=== PATIENT | male | born 1940 | race Caucasian/White ===

== ENCOUNTER 2017-11-19 01:29 | Outpatient (CLI) | payer MEDICARE, OTHER ==
[~2017-11-19 01:29] MED LIST: ALBU8HFA PO; ALLO100T PO; AMLO10TA PO; OMEP20TA23 PO; POTA10TA21 PO
== END 2017-11-19 23:59 | disposition home or self-care (01) ==
LOC: DIABETIC 01:29
PROVIDERS: ATTEND Family Medicine
DX: E11.65 Type 2 diabetes mellitus with hyperglycemia (principal); E11.21 Type 2 diabetes mellitus with diabetic nephropathy; E78.5 Hyperlipidemia, unspecified; I10 Essential (primary) hypertension; Z79.899 Other long term (current) drug therapy
CPT/HCPCS: G0108

== ENCOUNTER 2018-02-20 01:43 | Outpatient (CLI) | payer MEDICARE, OTHER | END 2018-02-20 23:59 | disposition home or self-care (01) | LOC: DIABETIC 01:43 | PROVIDERS: ATTEND Family Medicine | DX: E11.65 Type 2 diabetes mellitus with hyperglycemia (principal); E11.21 Type 2 diabetes mellitus with diabetic nephropathy; I10 Essential (primary) hypertension; E78.5 Hyperlipidemia, unspecified; Z79.82 Long term (current) use of aspirin; Z88.1 Allergy status to other antibiotic agents; Z88.0 Allergy status to penicillin; Z88.6 Allergy status to analgesic agent; Z88.8 Allergy status to other drugs, medicaments and biological substances; Z79.899 Other long term (current) drug therapy | CPT/HCPCS: G0108 ==

== ENCOUNTER 2018-05-19 04:37 | Outpatient (CLI) | payer MEDICARE, OTHER | END 2018-05-19 23:59 | disposition home or self-care (01) | LOC: DIABETIC 04:37 | PROVIDERS: ATTEND Family Medicine | DX: E11.65 Type 2 diabetes mellitus with hyperglycemia (principal); E11.21 Type 2 diabetes mellitus with diabetic nephropathy; I10 Essential (primary) hypertension; E78.5 Hyperlipidemia, unspecified; Z87.891 Personal history of nicotine dependence; Z79.899 Other long term (current) drug therapy | CPT/HCPCS: G0108 ==

== ENCOUNTER 2019-07-29 07:44 | Day surgery (SDC) | payer MEDICARE, OTHER ==
[2019-07-28 10:33] LABS: BASOPHILS # (AUTO) 0.1 X10'3 (0-0.2); EOSINOPHILS # (AUTO) 0.1 X10'3 (0-0.9); EOSINOPHILS % (AUTO) 1.7 % (0-6); HEMATOCRIT 44.5 % (42.0-52.0); HEMOGLOBIN 14.8 g/dl (14.0-17.9); LYMPHOCYTES # (AUTO) 2.7 X10'3 (1.1-4.8); LYMPHOCYTES % (AUTO) 30.7 % (21-51); MEAN CORPUSCULAR HEMOGLOBIN 30.7 PG (27.0-31.0); MEAN CORPUSCULAR HGB CONC 33.4 g/dL (33.0-36.5); MEAN PLATELET VOLUME 7.9 FL (7.4-10.4); MONOCYTES # (AUTO) 0.7 X10'3 (0-0.9); MONOCYTES % (AUTO) 8.5 % (2-12); NEUTROPHILS % (AUTO) 58.1 % (42-75); PLATELET COUNT 254 X10'3 (140-440); RED BLOOD COUNT 4.84 X10'6 (4.70-6.10); RED CELL DISTRIBUTION WIDTH 14.9 % (11.5-14.5); WHITE BLOOD COUNT 8.7 X10'3 (4.5-11.0)
[2019-07-28 10:43] LABS: ALBUMIN 3.7 G/DL (3.4-5.0); ANION GAP 5 (8-16); BLOOD UREA NITROGEN 24 MG/DL (7-18); BUN/CREATININE RATIO 18.5 (5.4-32.0); CALCIUM 9.4 MG/DL (8.5-10.1); CHLORIDE 106 MMOL/L (99-107); POTASSIUM 4.9 MMOL/L (3.5-5.1); SODIUM 141 MMOL/L (135-145); TOTAL CARBON DIOXIDE 30.1 MMOL/L (24-32); eGFR 53 ML/MIN
[2019-07-28 10:44] LABS: PARTIAL THROMBOPLASTIN TIME 26 SECONDS (22-32)
[2019-07-28 10:45] LABS: GLUCOSE 110 MG/DL (70-104)
[~2019-07-29] VITALS: Ht 172.7 cm; Wt 109.4 kg
[2019-07-29] VITALS (12 sets, daily range): BP systolic 105–195; BP diastolic 49–90
[2019-07-29] MEDS ORDERED: normal saline 1,000 ML IV SCH (08:05)
[2019-07-29] MEDS ORDERED: LORazepam 0.5 MG tablet PO PRN (08:05)
[2019-07-29] MEDS ORDERED: diphenhydrAMINE 25mg capsule PO PRN (08:05)
[2019-07-29] MEDS ORDERED: ALLO300T8 PO (08:19)
[2019-07-29] MEDS ORDERED: FURO20TA4 PO (08:19)
[2019-07-29] MEDS ORDERED: BISO5TAB29 PO (08:19)
[2019-07-29] MEDS ORDERED: ASPI-1265 PO (08:19)
[2019-07-29] MEDS ORDERED: PANT20TA3 PO (08:19)
[2019-07-29] MEDS ORDERED: GLUC500T12 (08:19)
[2019-07-29] MEDS ORDERED: ATOR-2 PO (08:19)
[2019-07-29] MEDS ORDERED: CLOP75TA35 PO (08:19)
[2019-07-29] MEDS ORDERED: CYAN250T (08:19)
[2019-07-29] MEDS ORDERED: LOSA25TA41 PO (08:19)
[2019-07-29] MEDS ORDERED: EPIN0.3P3 IM (08:22)
[2019-07-29] MEDS ORDERED: LIDOcaine/PRILOcaine 5gm cream TP ONE (08:25)
[2019-07-29] MEDS ORDERED: sodium bicarbonate (8.4%) inj. 150 ML in dextrose 5%-water 1,000 ML IV ONE (08:40)
[2019-07-29] MEDS ORDERED: sodium bicarbonate (8.4%) inj. 75 ML in dextrose 5%-water 500 ML IV ONE (08:45)
[2019-07-29] MEDS ORDERED: acetylcysteine 200 MG/ml 4ml vial PO SCH (09:50)
[2019-07-29] MEDS ORDERED: acetylcysteine 200 MG/ml 4ml vial PO PRN (09:50)
[2019-07-29] MEDS ORDERED: nitroGLYCERIN-Tridil 50MG/D5W 250 ML IV ONE (10:08)
[2019-07-29] MEDS ORDERED: verapamil 2.5 mg/ml inj IV ONE (10:08)
[2019-07-29] MEDS ORDERED: fentaNYL/PF 50MCG/1 ML 2ML syringe ONE (10:09)
[2019-07-29] MEDS ORDERED: heparin 1,000unit/ml 10ml vial 10 ML ONE (10:09)
[2019-07-29] MEDS ORDERED: midazolam 2 mg/2 ml injection ONE (10:09)
[2019-07-29] MEDS ORDERED: iohexol 350 MG/ML 50ML vial IV ONE (10:09)
[2019-07-29] MEDS ORDERED: LIDOcaine 1% (10mg/ml)w/preservative injection 20ml MDV ONE (10:09)
[2019-07-29] MEDS ORDERED: iohexol 350MG/ML 100ml bottle IV ONE ×2 (10:09→11:05)
[2019-07-29] MEDS ORDERED: sodium bicarbonate (8.4%) inj. 75 MEQ in dextrose 5% water 500ml 500 ML IV SCH (12:07)
[2019-07-29 12:40] LABS: ISTAT Hct MIX 38 %PCV (42-52); ISTAT O2 SATURATION MIX VENOUS 63 % (60-80); ISTAT SOURCE MIX
[2019-07-29 12:40] LABS: ISTAT HGB ART 13.3 g/dl (14.0-18.0); ISTAT Hct ART 39 %PCV (42-52); ISTAT O2 SATURATION ARTERIAL 95 % (95-98); ISTAT SOURCE ART
== END 2019-07-29 18:40 | disposition home or self-care (01) ==
LOC: SSTAY O 07:44
PROVIDERS: ATTEND Internal Medicine Cardiovascular Disease
DX: R06.02 Shortness of breath (principal); I25.10 Atherosclerotic heart disease of native coronary artery without angina pectoris; E78.5 Hyperlipidemia, unspecified; E11.22 Type 2 diabetes mellitus with diabetic chronic kidney disease; I13.0 Hypertensive heart and chronic kidney disease with heart failure and stage 1 through stage 4 chronic kidney disease, or unspecified chronic kidney disease; I50.32 Chronic diastolic (congestive) heart failure; N18.9 Chronic kidney disease, unspecified; I35.0 Nonrheumatic aortic (valve) stenosis; G47.33 Obstructive sleep apnea (adult) (pediatric); J45.909 Unspecified asthma, uncomplicated; M10.9 Gout, unspecified; Z95.5 Presence of coronary angioplasty implant and graft; Z95.2 Presence of prosthetic heart valve; Z79.899 Other long term (current) drug therapy; Z79.82 Long term (current) use of aspirin; Z79.01 Long term (current) use of anticoagulants; Z90.49 Acquired absence of other specified parts of digestive tract; Z98.890 Other specified postprocedural states; Z82.49 Family history of ischemic heart disease and other diseases of the circulatory system; Z82.5 Family history of asthma and other chronic lower respiratory diseases; Z87.891 Personal history of nicotine dependence; Z88.0 Allergy status to penicillin
CPT/HCPCS: 36415; 80048; 82803; 85014; 85025; 85610; 85730; 93005; 93460; 93567; 99152; 99153; C1769; C1894; J1644; J2001; J2250; J3010; J7030; Q0163; Q9967; A4620; A5120; J3490

== ENCOUNTER 2021-11-14 10:31 | Emergency (ER) | payer MEDICARE, OTHER ==
[~2021-11-14] VITALS: Ht 172.7 cm; Wt 104.5 kg
[~2021-11-14 10:31] MED LIST changes: -ALLO100T PO; +ALLO300T8 PO; -AMLO10TA PO; +ASPI-1265 PO; +ATOR-2 PO; +BISO5TAB29 PO; +CLOP75TA34 PO; +CYAN250T3; +EPIN0.3P3 IM; +FURO20TA4 PO; +GLUC500T12; +LOSA25TA41 PO; -OMEP20TA23 PO; +PANT20TA18 PO
[2021-11-14 11:58] LABS: BASOPHILS # (AUTO) 0.1 X10'3 (0-0.2); BASOPHILS % (AUTO) 0.8 % (0-1); EOSINOPHILS # (AUTO) 0.3 X10'3 (0-0.9); EOSINOPHILS % (AUTO) 3.3 % (0-6); HEMATOCRIT 41.8 % (42.0-52.0); HEMOGLOBIN 14.2 g/dl (14.0-17.9); LYMPHOCYTES # (AUTO) 2.4 X10'3 (1.1-4.8); LYMPHOCYTES % (AUTO) 27.4 % (21-51); MEAN CORPUSCULAR HEMOGLOBIN 31.1 PG (27.0-31.0); MEAN CORPUSCULAR HGB CONC 33.9 g/dL (33.0-36.5); MEAN CORPUSCULAR VOLUME 91.6 FL (78-98); MEAN PLATELET VOLUME 7.3 FL (7.4-10.4); MONOCYTES # (AUTO) 0.9 X10'3 (0-0.9); MONOCYTES % (AUTO) 9.6 % (2-12); NEUTROPHILS # (AUTO) 5.2 X10'3 (1.8-7.7); NEUTROPHILS % (AUTO) 58.9 % (42-75); PLATELET COUNT 243 X10'3 (140-440); RED BLOOD COUNT 4.57 X10'6 (4.70-6.10); RED CELL DISTRIBUTION WIDTH 14.2 % (11.5-14.5); WHITE BLOOD COUNT 8.8 X10'3 (4.5-11.0)
[2021-11-14 12:14] LABS: ALANINE AMINOTRANSFERASE 25 U/L (12-78); ALBUMIN 3.6 G/DL (3.4-5.0); ALBUMIN/GLOBULIN RATIO 0.9 (1.1-1.5); ALKALINE PHOSPHATASE 88 IU/L (46-116); ANION GAP 6 (8-16); ASPARTATE AMINO TRANSFERASE 20 U/L (10-37); BILIRUBIN,TOTAL 1.1 MG/DL (0.1-1.0); BLOOD UREA NITROGEN 33 MG/DL (7-18); BUN/CREATININE RATIO 26.6 (5.4-32.0); CALCIUM 9.2 MG/DL (8.5-10.1); CHLORIDE 106 MMOL/L (99-107); CREATININE 1.24 MG/DL (0.60-1.10); POTASSIUM 4.3 MMOL/L (3.5-5.1); SODIUM 139 MMOL/L (135-145); TOTAL CARBON DIOXIDE 26.7 MMOL/L (24-32); TOTAL PROTEIN 7.8 G/DL (6.4-8.2); eGFR 56 ML/MIN
[2021-11-14 12:24] LABS: GLUCOSE 109 MG/DL (70-104)
--- NOTE | 2021-11-14 17:56 | NUR ---
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 Robert Stoddard consulted.
--- NOTE | 2021-11-14 18:05 | NUR ---
[email or web address] REP NUMBER: [phone]
[2021-11-14 18:51] VITALS: BP 146/69
== END 2021-11-14 18:56 | disposition home or self-care (01) ==
LOC: ER 10:32
DX: R07.89 Other chest pain (principal); M25.511 Pain in right shoulder; R20.0 Anesthesia of skin; I25.10 Atherosclerotic heart disease of native coronary artery without angina pectoris; I10 Essential (primary) hypertension; K21.9 Gastro-esophageal reflux disease without esophagitis; Z87.442 Personal history of urinary calculi; Z90.49 Acquired absence of other specified parts of digestive tract; Z95.0 Presence of cardiac pacemaker; Z88.0 Allergy status to penicillin; Z88.1 Allergy status to other antibiotic agents; Z79.82 Long term (current) use of aspirin; Z79.899 Other long term (current) drug therapy
CPT/HCPCS: 36415; 71045; 80053; 83880; 84484; 85025; 93005; 99285

== ENCOUNTER 2021-12-20 06:40 | Day surgery (SDC) | payer MEDICARE, OTHER ==
[2021-12-19 10:44] LABS: BASOPHILS % (AUTO) 0.5 % (0-1); EOSINOPHILS # (AUTO) 0.3 X10'3 (0-0.9); EOSINOPHILS % (AUTO) 3.7 % (0-6); HEMATOCRIT 43.8 % (42.0-52.0); HEMOGLOBIN 14.7 g/dl (14.0-17.9); LYMPHOCYTES # (AUTO) 2.8 X10'3 (1.1-4.8); LYMPHOCYTES % (AUTO) 30.7 % (21-51); MEAN CORPUSCULAR HEMOGLOBIN 30.9 PG (27.0-31.0); MEAN CORPUSCULAR HGB CONC 33.5 g/dL (33.0-36.5); MEAN CORPUSCULAR VOLUME 92.1 FL (78-98); MEAN PLATELET VOLUME 7.4 FL (7.4-10.4); MONOCYTES # (AUTO) 0.9 X10'3 (0-0.9); MONOCYTES % (AUTO) 9.5 % (2-12); NEUTROPHILS % (AUTO) 55.6 % (42-75); PLATELET COUNT 253 X10'3 (140-440); RED BLOOD COUNT 4.75 X10'6 (4.70-6.10); RED CELL DISTRIBUTION WIDTH 14.1 % (11.5-14.5); WHITE BLOOD COUNT 9.1 X10'3 (4.5-11.0)
[2021-12-19 10:50] LABS: ALBUMIN 3.8 G/DL (3.4-5.0); ANION GAP 9 (8-16); BLOOD UREA NITROGEN 44 MG/DL (7-18); BUN/CREATININE RATIO 29.9 (5.4-32.0); CHLORIDE 104 MMOL/L (99-107); CREATININE 1.47 MG/DL (0.60-1.10); POTASSIUM 4.3 MMOL/L (3.5-5.1); SODIUM 142 MMOL/L (135-145); TOTAL CARBON DIOXIDE 28.6 MMOL/L (24-32); eGFR 46 ML/MIN
[2021-12-19 10:52] LABS: APTT 24 SECONDS (22-32); GLUCOSE 112 MG/DL (70-104)
[~2021-12-20] VITALS: Ht 172.7 cm; Wt 110.4 kg
[2021-12-20] VITALS (13 sets, daily range): BP systolic 121–157; BP diastolic 23–81
[2021-12-20] MEDS ORDERED: acetylcysteine 200 MG/ml 4ml vial PO PRN (06:55)
[2021-12-20] MEDS ORDERED: sodium bicarbonate (8.4%) inj. 150 ML in dextrose 5%-water 1,000 ML IV ONE ×2 (06:55→11:25)
[2021-12-20] MEDS ORDERED: normal saline 1,000 ML IV SCH (06:55)
[2021-12-20] MEDS ORDERED: LORazepam 0.5 MG tablet PO PRN (06:55)
[2021-12-20] MEDS ORDERED: diphenhydrAMINE 25mg capsule PO PRN (06:55)
[2021-12-20] MEDS ORDERED: LOSA1TAB39 PO (08:14)
[2021-12-20] MEDS ORDERED: Calcium (08:18)
[2021-12-20] MEDS ORDERED: MULT-1085 PO (08:18)
[2021-12-20] MEDS ORDERED: verapamil 2.5 mg/ml inj IV ONE (09:35)
[2021-12-20] MEDS ORDERED: midazolam 1 mg/ML 2ml injection ONE (09:36)
[2021-12-20] MEDS ORDERED: iohexol 350MG/ML 100ml bottle IV ONE ×2 (09:37→10:38)
[2021-12-20] MEDS ORDERED: fentaNYL/PF 50MCG/1 ML 2ML syringe ONE (09:37)
[2021-12-20] MEDS ORDERED: nitroGLYCERIN-Tridil 50MG/D5W 250 ML IV ONE (09:37)
[2021-12-20] MEDS ORDERED: heparin 1,000unit/ml 10ml vial 10 ML ONE (09:37)
[2021-12-20] MEDS ORDERED: LIDOcaine 1% (10mg/ml) 2ml vial ONE (09:43)
== END 2021-12-20 17:40 | disposition home or self-care (01) ==
LOC: SSTAY O 06:40
PROVIDERS: ATTEND Internal Medicine Cardiovascular Disease
DX: R94.39 Abnormal result of other cardiovascular function study (principal); I25.10 Atherosclerotic heart disease of native coronary artery without angina pectoris; I35.0 Nonrheumatic aortic (valve) stenosis; I50.9 Heart failure, unspecified; G47.33 Obstructive sleep apnea (adult) (pediatric); I13.0 Hypertensive heart and chronic kidney disease with heart failure and stage 1 through stage 4 chronic kidney disease, or unspecified chronic kidney disease; M10.9 Gout, unspecified; N18.9 Chronic kidney disease, unspecified; K21.9 Gastro-esophageal reflux disease without esophagitis; E11.22 Type 2 diabetes mellitus with diabetic chronic kidney disease; J45.909 Unspecified asthma, uncomplicated; E78.5 Hyperlipidemia, unspecified; Z79.899 Other long term (current) drug therapy; Z98.890 Other specified postprocedural states; I50.32 Chronic diastolic (congestive) heart failure; Z95.0 Presence of cardiac pacemaker; Z95.2 Presence of prosthetic heart valve; Z88.0 Allergy status to penicillin; Z88.8 Allergy status to other drugs, medicaments and biological substances
CPT/HCPCS: 36415; 76937; 80048; 82948; 85025; 85610; 85730; 93005; 93458; 99152; 99153; C1769; C1894; J1644; J2250; J3010; J3490; J7030; J7070; Q0163; Q9967; A4620; A5120; A6258; A6402

== ENCOUNTER 2023-06-03 14:05 | Emergency (ER) | payer MEDICARE, OTHER ==
[~2023-06-03] VITALS: Ht 172.7 cm; Wt 104.0 kg
[~2023-06-03 14:05] MED LIST changes: -CLOP75TA34 PO; +Calcium; +LOSA1TAB39 PO; -LOSA25TA41 PO; +MULT-1085 PO
[2023-06-03 16:19] VITALS: BP 131/69; PULSE 91; TEMP 97.9; O2SAT 92
[2023-06-03 19:00] LABS: BASOPHILS # (AUTO) 0.1 X10'3 (0-0.2); BASOPHILS % (AUTO) 0.5 % (0-1); EOSINOPHILS # (AUTO) 0.3 X10'3 (0-0.9); EOSINOPHILS % (AUTO) 2.4 % (0-6); HEMATOCRIT 44.5 % (42.0-52.0); HEMOGLOBIN 14.7 g/dl (14.0-17.9); LYMPHOCYTES # (AUTO) 2.4 X10'3 (1.1-4.8); LYMPHOCYTES % (AUTO) 21.1 % (21-51); MEAN CORPUSCULAR HEMOGLOBIN 31.2 PG (27.0-31.0); MEAN CORPUSCULAR VOLUME 94.4 FL (78-98); MEAN PLATELET VOLUME 7.8 FL (7.4-10.4); NEUTROPHILS # (AUTO) 7.6 X10'3 (1.8-7.7); PLATELET COUNT 255 X10'3 (140-440); RED BLOOD COUNT 4.72 X10'6 (4.70-6.10); RED CELL DISTRIBUTION WIDTH 14.5 % (11.5-14.5); WHITE BLOOD COUNT 11.4 X10'3 (4.5-11.0)
[2023-06-03 19:15] LABS: ALANINE AMINOTRANSFERASE 31 U/L (12-78); ALBUMIN 3.4 G/DL (3.4-5.0); ALKALINE PHOSPHATASE 100 IU/L (46-116); ANION GAP 9 (8-16); BLOOD UREA NITROGEN 32 MG/DL (7-18); BUN/CREATININE RATIO 25.6 (10.0-20.0); CHLORIDE 103 MMOL/L (99-107); CREATININE 1.25 MG/DL (0.60-1.10); SODIUM 140 MMOL/L (135-145); TOTAL CARBON DIOXIDE 28.4 MMOL/L (24-32); eCRCL 43 ML/MIN; eGFR 55 ML/MIN
[2023-06-03 19:23] LABS: ETHANOL < 10 MG/DL (<10); MAGNESIUM 2.1 MG/DL (1.5-2.4); PRO BRAIN NATRIURETIC PEPTIDE 2357 PG/ML (0-450)
[2023-06-03 19:27] VITALS: RESP 18
[2023-06-03 19:27] LABS: ALBUMIN/GLOBULIN RATIO 0.8 (1.1-1.5); ASPARTATE AMINO TRANSFERASE 20 U/L (10-37); CALCIUM 9.5 MG/DL (8.5-10.1); GLUCOSE 138 MG/DL (70-104); TOTAL PROTEIN 7.7 G/DL (6.4-8.2)
[2023-06-03 19:28] LABS: APTT 28 SECONDS (22-32); DIGOXIN < 0.2 NG/ML (0.9-1.9); INR 1.1 INR; PROTHROMBIN TIME 11.4 SECONDS (9.0-12.0)
[2023-06-03] MEDS ORDERED: ACET-3209 PO (19:58)
== END 2023-06-03 20:03 | disposition home or self-care (01) ==
LOC: ER 14:05
DX: S06.0XAA Concussion with loss of consciousness status unknown, initial encounter (principal); R79.1 Abnormal coagulation profile; Z88.1 Allergy status to other antibiotic agents; Z88.0 Allergy status to penicillin; Z88.8 Allergy status to other drugs, medicaments and biological substances; W19.XXXA Unspecified fall, initial encounter; Y93.89 Activity, other specified; Y92.89 Other specified places as the place of occurrence of the external cause; Y99.8 Other external cause status
CPT/HCPCS: 36415; 70450; 72125; 80053; 80162; 80320; 83735; 83880; 84484; 85025; 85610; 85730; 93005; 99284

== ENCOUNTER 2024-07-02 07:27 | Day surgery (SDC) | payer MEDICARE, OTHER ==
[~2024-07-02] VITALS: Ht 172.7 cm; Wt 113.6 kg
[~2024-07-02 07:27] MED LIST changes: -POTA10TA21 PO; +[UNRECOGNIZED DRUG - CODE] PO
[2024-07-02] MEDS ORDERED: POTA-280 (07:49)
[2024-07-02] MEDS ORDERED: PANT40TA54 PO (07:49)
[2024-07-02] MEDS ORDERED: ESCI-8 PO (07:49)
[2024-07-02] MEDS ORDERED: ALBU8HFA PO (07:49)
[2024-07-02] MEDS ORDERED: LOSA1TAB36 (07:49)
[2024-07-02] MEDS ORDERED: ALPR0.255 (07:49)
[2024-07-02] MEDS ORDERED: BISO10TA16 (07:49)
[2024-07-02 08:10] VITALS: BP 169/78; PULSE 64; RESP 15
[2024-07-02] MEDS ORDERED: propofol 1000mg/100ml bottle 100 ML IV ONE (08:38)
[2024-07-02] MEDS ORDERED: ePHEDrine 50MG/ML INJ. ONE (08:41)
[2024-07-02] MEDS ORDERED: phenylephrine 10mg/ml inj. ONE (08:41)
[2024-07-02 10:30] VITALS: BP 86/50; PULSE 75; RESP 15; O2SAT 96
[2024-07-02 10:40] VITALS: BP 94/53; PULSE 79; RESP 24; O2SAT 96
[2024-07-02 10:50] VITALS: BP 116/63; PULSE 71; RESP 16; O2SAT 97
[2024-07-02 11:00] VITALS: BP 122/74; PULSE 79; RESP 12; O2SAT 95
== END 2024-07-02 11:30 | disposition home or self-care (01) ==
LOC: GI LAB 07:27
PROVIDERS: ATTEND Internal Medicine Gastroenterology
DX: R19.7 Diarrhea, unspecified (principal); R19.5 Other fecal abnormalities; K57.31 Diverticulosis of large intestine without perforation or abscess with bleeding; K63.89 Other specified diseases of intestine; I10 Essential (primary) hypertension; G47.33 Obstructive sleep apnea (adult) (pediatric); Z87.891 Personal history of nicotine dependence; Z95.818 Presence of other cardiac implants and grafts; Z95.0 Presence of cardiac pacemaker; Z98.890 Other specified postprocedural states; Z88.0 Allergy status to penicillin; Z88.1 Allergy status to other antibiotic agents; Z88.8 Allergy status to other drugs, medicaments and biological substances; Z79.899 Other long term (current) drug therapy
CPT/HCPCS: 45380; 88305; A4620; J2371; J2704; J3490; J7030; Z7512